=== PATIENT | female | born 2000 | race Caucasian/White ===

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

== ENCOUNTER → 2019-03-23 | Outpatient (CLI) | payer OTHER ==
[~2019-03-23] MED LIST changes: +ELMIRON100 MG PO; +OMNICEF300 MG PO
[2019-03-23 18:14] LABS: BASO # 0.1 10*3/uL (0.0-0.1); BASO % 0.4 % (0.0-1.0); EOS # 0.1 10*3/uL (0.0-0.4); EOS % 0.6 % (1.0-4.0); HEMATOCRIT 36.8 % (37.0-47.0); HEMOGLOBIN 12.7 g/dl (12.0-16.0); LYMPH # 3.1 10*3/uL (1.3-4.4); MEAN CELL VOLUME 91.1 fl (81.0-99.0); MEAN CORPUSCULAR HGB 31.4 pg (27.0-31.0); MEAN CORPUSCULAR HGB CONC 34.5 g/dl (33.0-37.0); MEAN PLATELET VOLUME 9.7 fl (9.6-12.3); MONO # 0.6 10*3/uL (0.1-1.0); MONO % 3.5 % (3.0-9.0); NEUT # 11.6 10*3/uL (2.3-7.9); NEUT % 74.3 % (47.0-73.0); PLATELET COUNT AUTOMATED 305 10*3/uL (130-400); RED BLOOD COUNT 4.04 10*6/uL (4.10-5.10); WHITE BLOOD COUNT 15.6 10*3/uL (4.8-10.8)
[2019-03-23 18:19] LABS: URINE AMPHETAMINES < 1000 (1000ng/ml); URINE BARBITURATES < 200 (200ng/ml); URINE BENZODIAZEPINES < 200 (200ng/ml); URINE CANNABINOIDS (THC) < 50 (50ng/ml); URINE COCAINE < 300 (300ng/ml); URINE METHADONE < 300 (300ng/ml); URINE OPIATES < 300 (300ng/ml)
[2019-03-23 18:20] LABS: URINE PHENCYCLIDINE < 25 (25ng/ml)
[2019-03-24 07:07] LABS: HEPATITIS B SURFACE AG Negative (Negative); HEPATITIS C VIRUS ANTIBODY <0.1 s/co (0.0-0.9)
== END | disposition home or self-care (01) ==
LOC: LAB 03-22 15:40
PROVIDERS: Physician Assistant
DX: Z34.90 Encounter for supervision of normal pregnancy, unspecified, unspecified trimester (principal); Z3A.00 Weeks of gestation of pregnancy not specified

== ENCOUNTER → 2019-05-20 | Outpatient (CLI) | payer OTHER ==
[2019-05-25 09:06] LABS: AFP MOM 1.48 (.); AFP VALUE 84.7 ng/mL (.); DIA MOM 1.05 (.); DIA VALUE 203.74 pg/mL (.); DSR (BY AGE) 1 IN 1165 (.); DSR (SECOND TRIMESTER) 1 IN 10000 (.); GEST. AGE ON COLLECTION DATE 20.4 WEEKS (.); GESTATIONAL AGE BASED ON Ultrasound (.); HCG MOM 1.46 (.); HCG VALUE 32624 mIU/mL (.); INSULIN DEPENDENT DIABETES No (.); MATERNAL AGE AT EDD 19.9 yr (.); MULTIPLE GESTATION No (.); OSBR RISK 1 IN 2886 (.); RACE Caucasian (.); T18 RISK Not increased (.); TEST RESULTS *Screen Negative* (.); WEIGHT 160 lbs (.)
== END | disposition home or self-care (01) ==
LOC: LAB 17:49
PROVIDERS: Physician Assistant
DX: Z34.90 Encounter for supervision of normal pregnancy, unspecified, unspecified trimester (principal); Z3A.00 Weeks of gestation of pregnancy not specified

== ENCOUNTER → 2021-01-13 | Outpatient (CLI) | payer OTHER | END | disposition home or self-care (01) | LOC: COVID19 16:16 | PROVIDERS: ATTEND Podiatrist Foot & Ankle Surgery | DX: U07.1 COVID-19 (principal) ==

== ENCOUNTER → 2021-03-08 | Outpatient (CLI) | payer OTHER | END | disposition home or self-care (01) | LOC: COVID19 16:33 | PROVIDERS: ATTEND Student in an Organized Health Care Education/Training Program | DX: U07.1 COVID-19 (principal) ==